=== PATIENT | male | born 1995 | race Caucasian/White ===

== ENCOUNTER → 2017-06-19 11:40 | Outpatient (CLI) | payer OTHER, SELFPAY ==
[2017-06-19 16:41] LABS: Cholesterol 125 mg/dL (200); Creatinine, Serum 0.84 mg/dL (0.70-1.30); EST Glomerular Filtration Rate 123 mL/min (>60); Est Glom Filt Rate - Afr Amer 149 mL/min (>60); High Density Lipoprotein 58 mg/dL
== END ==
PROVIDERS: Family Provider Family Medicine; PCP Family Medicine; Visit Provider Family Medicine
DX: M51.36 Other intervertebral disc degeneration, lumbar region (principal); Z82.49 Family history of ischemic heart disease and other diseases of the circulatory system
CPT/HCPCS: 36415; 82465; 82565; 83718

== ENCOUNTER → 2019-02-01 09:20 | Outpatient (CLI) | payer BC, SELFPAY ==
[2014-04-19 16:35] VITALS: BMI 20.9
--- NOTE | 2019-02-01 09:23 | RAD_ITS ---
STUDY: X-RAY - LUMBAR SPINE REASON FOR EXAM: Male, 24 years old. Lower back pain for 2 weeks. History of several transverse processes broken 2 1/2 years ago. TECHNIQUE: 5 view(s) of the lumbar spine were obtained. COMPARISON: None FINDINGS: Normal lumbar lordosis. There is no substantial scoliosis. There is a normal alignment of the vertebrae. Normal vertebral bodies and endplates. Normal disc space heights. There is no acute fracture, dislocation or destructive osseous pathology. Irregularities about the right second and third right transverse processes. 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 There is no demonstrated spondylolysis of the pars interarticulares. The soft tissue structures are unremarkable. RAD/L/S Spine Min 4 Views IMPRESSION: 1. No acute abnormality of the lumbar spine. 2. Remote right-sided transverse rods at fractures. There is questionable nonunion of the fourth transverse process. Electronically Signed: Kenneth Rhodes DO at 16:56 EDT Tel [phone], Service support ,
== END ==
PROVIDERS: Family Provider Family Medicine; PCP Family Medicine; Referring Provider Family Medicine; Visit Provider Family Medicine
DX: M54.9 Dorsalgia, unspecified (principal)
CPT/HCPCS: 72110

== ENCOUNTER → 2019-02-11 14:17 | Outpatient (CLI) | payer BC, SELFPAY ==
--- NOTE | 2019-02-11 14:22 | CT_ITS ---
STUDY: CT LUMBAR SPINE WITHOUT CONTRAST REASON FOR EXAM: Male, 24 years old. There is history of previous transverse process fractures RADIATION DOSAGE (If Supplied By Facility): CTDIvol = ( 13.82 ) mGy, DLP = ( 511.99 ) mGycm TECHNIQUE: The patient was scanned in a multi detector CT scanner. High resolution transaxial imaging was performed. Sagittal and coronal images were reconstructed. Individualized dose optimization techniques were used for this CT. COMPARISON: MRI 03/26/2017, radiographs 02/01/2019. FINDINGS: Normal lumbar lordosis. There is no substantial scoliosis. Normal alignment of the lumbar vertebral bodies. Deformities from old fractures are seen of the right transverse processes at L1, L2, L3 and L4. No acute fractures are seen. L1-2: Normal endplates. Normal disc height and morphology. Normal bilateral facet joints. Normal central canal and bilateral lateral recesses. Normal bilateral intervertebral neural foramina. L2-3: Normal endplates. Normal disc height and morphology. Normal bilateral facet joints. Normal central canal and bilateral lateral recesses. Normal bilateral intervertebral neural foramina. L3-4: Normal endplates. Normal disc height and morphology. Normal bilateral facet joints. Normal central canal and bilateral lateral recesses. Normal bilateral intervertebral neural foramina. L4-5: Normal disc height. Moderate left paramidline disc protrusion, best seen on axial image 83. Suggest repeat MRI. L5-S1: Normal endplates. Normal disc height and morphology. Normal bilateral facet joints. Normal central canal and bilateral lateral recesses. Normal bilateral intervertebral neural foramina. Normal visualized paraspinous soft tissue structures. CT/Spine Lumbar without Contrast IMPRESSION: No acute fractures. Deformities from old right multilevel transverse process fractures. Paramidline disc protrusion at L4-L5. Electronically Signed: Daniel Vides MD at 22:19 EDT , Service support ,
== END ==
PROVIDERS: Family Provider Family Medicine; PCP Family Medicine; Referring Provider Family Medicine; Visit Provider Family Medicine
DX: M54.9 Dorsalgia, unspecified (principal)
CPT/HCPCS: 72131

== ENCOUNTER → 2021-09-13 | Outpatient (CLI) | payer OTHER, SELFPAY | END | disposition home or self-care (01) | PROVIDERS: PCP Family Medicine; Visit Provider Registered Nurse | DX: R06.81 Apnea, not elsewhere classified (principal) | CPT/HCPCS: 95810 ==

== ENCOUNTER → 2021-11-12 | Outpatient (CLI) | payer OTHER, SELFPAY | END | disposition home or self-care (01) | LOC: SL 08:34 | PROVIDERS: PCP Family Medicine; Visit Provider Nurse Practitioner Acute Care | DX: Z46.89 Encounter for fitting and adjustment of other specified devices (principal) ==

== ENCOUNTER → 2021-12-21 | Outpatient (CLI) | payer OTHER, SELFPAY ==
--- NOTE | 2021-12-21 17:25 | STRESSREP ---
Stress Test Report Date: 12-21-2021 Procedure: Exercise tolerance test Indications: Chest pain; NUBIA Consent: Per the patient Procedure: The patient exercised on a Jordan protocol for 15 minutes completing Stage V achieving a peak heart rate of 150 bpm (76% predicted maximal heart rate) with a peak blood pressure 158/84 mmHg and a peak MET capacity of approximately 17 MET's. The baseline ECG demonstrated normal sinus rhythm. The peak exercise ECG demonstrated somatic/motion artifact with no obvious ECG changes at the heart rate achieved. There were no cardiac dysrhythmias pretest, during exercise, or recovery. The functional capacity was considered excellent. The patient had no complaint of chest discomfort during exercise or recovery. The examination was discontinued secondary to dyspnea. Impression: 1. Technically inadequate (percent predicted maximal heart rate less than 85%) exercise tolerance test 2. Peak exercise ECG with no obvious ECG changes at the heart rate achieved 3. There were no cardiac dysrhythmias during exercise or recovery Comment: Per the [facility] cardiovascular staff: The patient reported taking a medication/beta-jimi prior to his exercise tolerance test which could potentially impair his heart rate response. This note was generated with [employer] software. It may contain incorrect words, spelling, and punctuation that were not noted in checking the note before signing.
== END | disposition home or self-care (01) ==
LOC: CVS 09:53
PROVIDERS: PCP Family Medicine; Referring Provider Family Medicine; Visit Provider Family Medicine
DX: R07.9 Chest pain, unspecified (principal)
CPT/HCPCS: 93017

== ENCOUNTER → 2022-01-18 | Outpatient (CLI) | payer OTHER, SELFPAY ==
--- NOTE | 2022-01-18 10:30 | STE_ITS ---
Reason For Study: Chest Pain Stress Results Protocol: Jordan Protocol Maximum Predicted HR: 196 bpm Target HR: 167 bpm % Maximum Predicted HR: 85 % DurationHeart Rate Stage (mm:ss) (bpm) BP Comment Baseline 76 130/90No Chest Pain; Held Nebevilol X 2 Days Jordan Protocol Stage I 3:00 96 122/80No Chest Pain Jordan Protocol Stage II 3:00 99 140/78No Chest Pain Jordan Protocol Stage III 3:00 105 142/80No Chest Pain Jordan Protocol Stage IV 3:00 123 148/74No Chest Pain Jordan Protocol Stage V 3:00 166 160/72No Chest Pain Recovery 89 130/86No Chest Pain Stress Duration: 15:00 mm:ss Maximum Stress HR: 166 bpm METS: 17 Baseline Echocardiogram Findings Stress Echo Wall motion Data Resting WM Intermediate WM Stress WM Resting Wall Motion Wall Motion Stress All segments Normal. All segments Hyperkinetic. Ejection Fraction 60 %. Ejection Fraction 75 %. Stress Results Heart rate response: Technically adequate: Percent predicted maximal heart rate greater than 85% Blood pressure response: Resting hypertension-appropriate response Cardiac rhythm: No cardiac dysrhythmias Functional capacity: Good Stopped secondary to: Dyspnea. EKG Data Baseline ECG: Normal sinus rhythm. Peak exercise ECG: No obvious ECG changes. Symptoms with Stress No complaint of chest discomfort during exercise or recovery. ECHO/Stress Test Echo w/o Contrast Interpretation Summary Negative (adequate) stress echocardiogram Ordering Physician: Baljeet Christy Referring Physician: Baljeet Christy Performed By: Scarlett Conway, LYLE
== END | disposition home or self-care (01) ==
LOC: CVS 10:29
PROVIDERS: PCP Family Medicine; Referring Provider Internal Medicine Cardiovascular Disease; Visit Provider Internal Medicine Cardiovascular Disease
DX: R07.9 Chest pain, unspecified (principal); I10 Essential (primary) hypertension
CPT/HCPCS: 93017; 93350

== ENCOUNTER → 2022-02-20 | Outpatient (CLI) | payer OTHER, SELFPAY ==
--- NOTE | 2022-02-20 07:51 | RDU_ITS ---
Reason For Study: HTN Right Renal Artery Left Renal Artery Right renal artery ostium 69/28 Left renal artery ostium 131/27 RSV/EDV. PSV/EDV. Right renal artery proximal 80/35 Left renal artery proximal PSV/EDV PSV/EDV. 115/35 . Right renal artery mid 110/51 Left renal artery mid 94/35 PSV/EDV. PSV/EDV . Right renal artery distal 83/39 Left renal artery distal 99/33 PSV/EDV. PSV/EDV. Right Renal Parenchyma Left Renal Parenchyma Upper Pole Medula 26/12 PSV/EDV. Left upper pole medulla 35/17 Right upper pole medulla EDR 0.46 . PSV/EDV . Right upper pole medulla R.I. Left upper pole medulla EDR 0.49 . 0.56 . Left upper pole medulla R.I. 0.50 . Upper Leno Cortx 16/10 PSV/EDV. UP Cortex 32/17 PSV/EDV. Right upper pole cortex EDR 0.63 . Left upper pole cortex EDR 0.53 . Right upper pole cortex R.I. 0.37 . Left upper pole cortex R.I. 0.46 . Right lower Pole medulla 37/16 Left lower Pole medulla 33/15 PSV/EDV . PSV/EDV . Right lower pole medulla EDR 0.43 . Left lower pole medulla EDR 0.45 . Right lower pole medulla R.I. Left lower pole medulla R.I. 0.54 . 0.56 . Lower Pole Cortx 26/12 PSV/EDV. Lower Pole Cortex 17/7 PSV/EDV. Left lower pole cortex EDR 0.46 . Right lower pole cortex EDR 0.41 . Left lower pole cortex R.I. 0.53 . Right lower pole cortex R.I. 0.57 . Left Renal Hilar Right Renal Hilar LT Hilar avg 43/21 PSV/EDV . Right Hilar avg 78/36 PSV/EDV. Left hilar acceleration time 40 Right hilar acceleration time 40 m/sec. m/sec. Left Renal Dimensions Right Renal Dimensions Left kidney size 11.86 cm . Right kidney size 10.3 cm . Left cortical dimension 2.29 cm . Right cortical dimension 1.20 cm . Aorta Proximal abdominal aorta 1.50cm x 1.61 cm . Proximal abdominal aorta peak systolic velocity is 124 cm/sec . Distal abdominal aorta 1.57cm x 1.64 cm . Distal abdominal aorta peak systolic velocity is 128 cm/sec . VL/Renal Artery Duplex Ultrasound Interpretation Summary Bilateral renal artery <60% stenosis. Ordering Physician: Baljeet Christy Referring Physician: Puneet Pennington Performed By: Raven Baker, LYLE, RVT
== END | disposition home or self-care (01) ==
LOC: CVS 07:51
PROVIDERS: PCP Family Medicine; Referring Provider Internal Medicine Cardiovascular Disease; Visit Provider Internal Medicine Cardiovascular Disease
DX: I10 Essential (primary) hypertension (principal); R07.9 Chest pain, unspecified
CPT/HCPCS: 93975

== ENCOUNTER → 2022-04-25 | Outpatient (CLI) | payer OTHER, SELFPAY ==
[2022-04-25 09:23] LABS: Absolute Lymphocyte Count 1.55 X10^3/uL (0.83-4.51); Basophil# 0.05 X10^3/uL; Basophil% 0.9 % (0-1); Eosinophil# 0.23 X10^3/uL; Eosinophils% 4.3 % (0-5); Hematocrit 47.8 % (40-54); Hemoglobin 15.7 g/dL (13.0-16.5); Lymphocyte # 1.55 X10^3/ul (0.83-4.51); Lymphocyte % 29.1 % (19-41); Mean Corp Hgb Conc 32.8 g/dL (32-36); Mean Corpuscular Hgb 27.8 pg (27.0-32.0); Mean Corpuscular Volume 84.6 fL (80-94); Mean Platelet Vol. 9.4 fl (6.2-12.0); Monocyte# 0.51 X10^3/uL; Monocyte% 9.6 % (0-10); NRBC Flagged by Analyzer 0 % (0-5); Neutrophil # 2.96 X10^3/uL (2.7-7.7); Neutrophil % 55.5 % (47-70); Platelet Count 236 K/mm3 (150-450); RBC Distribution Width CV 11.9 % (11.6-14.6); RBC Distribution Width SD 35.9 fl (35.1-43.9); Red Blood Count 5.65 M/mm3 (4.6-6.2); White Blood Count 5.3 K/mm3 (4.4-11.0)
[2022-04-25 09:50] LABS: Vitamin D,25 Hydroxy 35.2 ng/mL
[2022-04-25 09:58] LABS: Anion Gap 1 (5-15); BUN 13 mg/dL (7-18); BUN/Creat Ratio 14.4 RATIO (10-20); Calcium,Total 9.1 mg/dL (8.5-10.1); Chloride 105 mmol/L (98-107); EST Glomerular Filtration Rate 109 mL/min (>60); Est Glom Filt Rate - Afr Amer 132 mL/min (>60); Glucose 105 mg/dL (74-106); Potassium 4.1 mmol/L (3.5-5.1); Sodium Level 138 mmol/L (136-145); Thyroid Stim Hormone (TSH) 1.09 uIU/mL (0.358-3.74)
== END | disposition home or self-care (01) ==
LOC: LAB 09:07
PROVIDERS: PCP Family Medicine; Visit Provider Nurse Practitioner Gerontology
DX: R53.83 Other fatigue (principal)
CPT/HCPCS: 36415; 80048; 82306; 84443; 85025

== ENCOUNTER → 2022-05-08 | Outpatient (CLI) | payer OTHER, SELFPAY ==
--- NOTE | 2022-05-08 13:58 | PFTCOMP_ITS ---
COMPLETE PULMONARY FUNCTION TEST INTERPRETATION Brief HPI: Patient is a 27-year-old male, currently under the care of Dr. Lundberg, who presents to [facility] for complete pulmonary function tests secondary to diagnosis of dyspnea. Respiratory therapist reports good effort and reproducible results. Interpretation: Forced expiration spirometry shows no large airways obstructive ventilatory defect with an FEV1 of 86% predicted. There is no significant bronchodilator response by strict ATS criteria. Spirograms are of good quality and plateau normally. The respiratory flow volume loop shows a normal pattern. Lung volumes by body plethysmography show a mildly decreased total lung capacity at 5.68 L, 74% predicted. All other lung volumes are reduced symmetrically. Diffusion capacity by carbon monoxide is normal at 94% predicted. The airway resistance is slightly elevated. No previous pulmonary function tests were available for review. Impression: Mild restrictive ventilatory defect with preserved diffusing capacity
== END | disposition home or self-care (01) ==
PROVIDERS: PCP Family Medicine; Referring Provider Internal Medicine Critical Care Medicine; Visit Provider Internal Medicine Critical Care Medicine
DX: R06.02 Shortness of breath (principal); R94.2 Abnormal results of pulmonary function studies
CPT/HCPCS: 94060; 94726; 94729

== ENCOUNTER → 2022-05-22 | Outpatient (CLI) | payer OTHER, SELFPAY ==
--- NOTE | 2022-05-22 08:35 | RAD_ITS ---
STUDY: X-RAY CHEST REASON FOR EXAM: Male, 27 years old. Restriction on PFT TECHNIQUE: PA and lateral views of the chest. COMPARISON: None. FINDINGS: The lungs are clear and expanded. There is no demonstrated pleural abnormality. Normal size heart. Normal mediastinum and guido. Normal visualized pulmonary arteries. Normal visualized aortic arch and descending thoracic aorta. Normal visualized thoracic spine. Normal visualized ribs, clavicles, and shoulders. There is no demonstrated abnormality of the visualized soft tissue structures of the upper abdomen. RAD/Chest PA and Lateral IMPRESSION: Normal x-ray examination of the chest. Electronically Signed: Agustin Carrillo MD at 15:44 EST ,
== END | disposition home or self-care (01) ==
LOC: RAD 08:30
PROVIDERS: PCP Family Medicine; Visit Provider Nurse Practitioner Acute Care
DX: R07.9 Chest pain, unspecified (principal)
CPT/HCPCS: 71046

== ENCOUNTER → 2022-05-31 | Outpatient (CLI) | payer OTHER, SELFPAY ==
--- NOTE | 2022-05-31 12:55 | ECHOD_ITS ---
Reason For Study: Chest Pain Procedure This was a 2D Doppler, Color Flow transthoracic echocardiogram. Exam performed in department. Left Ventricle Normal LV size. Left ventricular systolic function is normal. The estimated ejection fraction is 60 %. Normal diastology for age. No regional wall motion abnormalities noted. Right Ventricle Normal right ventricle. Normal systolic function. Atria Normal left atrium. Normal right atrium. Mitral Valve Normal mitral valve. Tricuspid Valve Normal tricuspid valve. Aortic Valve Normal aortic valve. Trisinus/trileaflet aortic valve. Pulmonic Valve Normal pulmonic valve. Great Vessels Normal aortic root. The pulmonary artery is normal size. Normal inferior vena cava. Pericardium/Pleural No pericardial effusion. MMode/2D Measurements & Calculations LVIDd: 4.5 cm IVSd: 0.98 cm Ao root diam: 3.0 cm LVIDs: 3.0 cm LVPWd: 0.82 cm LA dimension: 3.3 cm RVDd: 3.5 cm FS: 34.9 % LAV(MOD-bp): 29.6 ml LVAd ap4: 31.1 cm2 SV(MOD-sp4): 50.7 ml LAV(MOD-bp) Indexed: 14.2 ml/m2 LVLd ap4: 9.2 cm LAV(MOD-sp2): 30.5 ml EDV(MOD-sp4): 87.3 ml LAV(MOD-sp4): 25.1 ml EDV(sp4-el): 89.5 ml LVAs ap4: 18.2 cm2 LVLs ap4: 7.6 cm ESV(MOD-sp4): 36.7 ml ESV(sp4-el): 37.1 ml EF(MOD-sp4): 58.0 % EF(sp4-el): 58.6 % SV(sp4-el): 52.4 ml LA A4 area: 12.3 cm2 RA A4 area: 13.4 cm2 Time Measurements MV dec time: 0.18 sec Doppler Measurements & Calculations MV E max saurav: 82.4 cm/sec Lat Peak E' Saurav: 18.2 cm/sec Med Peak E' Saurav: 17.7 cm/sec MV A max saurav: 60.1 cm/sec E/E' lat: 4.5 E/E' med: 4.7 MV E/A: 1.4 MV V2 max: 96.9 cm/sec MV P1/2t max saurav: 95.9 cm/sec Ao V2 max: 117.3 cm/sec MV max P.8 mmHg MV P1/2t: 57.7 msec Ao max P.5 mmHg MV V2 mean: 52.6 cm/sec Ao V2 mean: 79.3 cm/sec MV mean P.3 mmHg MV dec slope: 487.1 cm/sec2 Ao mean P.9 mmHg MV V2 VTI: 23.1 cm MVA(P1/2t): 3.8 cm2 Ao V2 VTI: 19.5 cm AV (velocity ratio): 1.1 LV V1 max: 121.1 cm/sec PA V2 max: 118.5 cm/sec LV V1 max P.9 mmHg PA V2 mean: 83.8 cm/sec LV V1 mean P.9 mmHg LV V1 mean: 78.3 cm/sec LV V1 VTI: 21.0 cm ECHO/Echo Complete Interpretation Summary Normal LV size. Left ventricular systolic function is normal. The estimated ejection fraction is 60 %. Normal diastology for age. Structurally normal valves. Ordering Physician: Jing Alcocer Referring Physician: Puneet Pennington Performed By: Gurmeet Poe RCS
== END | disposition home or self-care (01) ==
PROVIDERS: PCP Family Medicine; Visit Provider Family Medicine
DX: R07.9 Chest pain, unspecified (principal)
CPT/HCPCS: 93306

== ENCOUNTER 2023-08-03 14:46 | Emergency (ER) | payer OTHER, SELFPAY ==
[2023-08-03 14:47] VITALS: BP 164/100; PULSE 87; RESP 18; TEMP 36.4; O2SAT 100; BMI 24.2
--- NOTE | 2023-08-03 15:35 | EKG12_ITS ---
Test Reason : CHEST PAIN Blood Pressure : / mmHG Vent. Rate : 101 BPM Atrial Rate : 101 BPM P-R Int : 160 ms QRS Dur : 102 ms QT Int : 348 ms P-R-T Axes : 057 047 067 degrees QTc Int : 451 ms Sinus tachycardia Otherwise normal ECG Confirmed by Felix Mejia ([id number]), assistant editor BITA BURCIAGA ([id number]) on 08/05/2023 10:16:57 AM Referred By: Confirmed By:Felix Mejia
--- NOTE | 2023-08-03 15:36 | ED.VIS.CHEST ---
HPI History of Present Illness Chief Complaint: Chest Pain Informant: patient Narrative Narrative: 28-year-old male presents after having sudden onset of racing pounding heartbeat that made him feel near syncopal, he had some left-sided chest heaviness that was nonpleuritic, felt dyspneic. He states he had 2 or 3 episodes of this in the past couple hours and is now feeling better. It was in between Easter meals in the middle of the afternoon. Denies any long travel recently, hospitalization, surgery, no leg pain or swelling. No recent injury. No illness. No history of DVT or PE. He has had symptoms like this before, he was seen at another hospital and told that he may have had an anxiety attack. He admits that the symptoms are making him feel anxious but he does not feel like it was necessarily a panic attack that started any of this. He is not on any mental health medications. He is concerned about the symptoms. He did follow-up with cardiology in the past because of stuff like this, ended up having a stress test that was negative and an echocardiogram that was fairly unremarkable. [facility] Medical History Allergic rhinosinusitis Conjunctivitis, both eyes Elevated blood pressure reading Essential hypertension H/O cardiovascular stress test Home Medications Oral appliance #1 ea 10/02/21 [Rx Last Taken Unknown] magnesium oxide 400 mg (241.3 mg magnesium) tablet 400 mg PO QHS 01/02/22 [History Last Taken Unknown] albuterol sulfate 90 mcg/actuation aerosol inhaler 2 puff inhalation Q4H PRN shortness of breath or wheezing #8.5 grams 04/09/22 [Rx Last Taken Unknown] Oral appliance #1 ea 10/30/22 [Rx Last Taken Unknown] omeprazole 40 mg capsule,delayed release 40 mg PO DAILY #30 caps 10/31/22 [Rx Last Taken Unknown] amlodipine 2.5 mg tablet 2.5 mg PO DAILY #90 tabs 04/21/23 [Rx Last Taken Unknown] Allergy/AdvReac Type Severity Reaction Status Date / Time No Known Allergies Allergy Verified 08/03/23 14:47 Family History Mother Hypertension Father Hypertension Grandfather CAD (coronary artery disease) Social History Smoking Status: Never smoker alcohol intake: current details: occasional substance use type: does not use caffeine: Yes Type: coffee Number of servings: 1 ROS ROS ED Constitutional Constitutional ED: Reports sweats; Denies chills or fever(s) Eyes Eyes: Denies change in vision or diplopia ENT ENT ED: Denies rhinorrhea or sore throat Cardiovascular Cardiovascular: Reports as per HPI, chest pain, lightheadedness and palpitations; Denies syncope Respiratory/Chest Respiratory/Chest: Reports dyspnea; Denies cough Gastrointestinal Gastrointestinal: Denies abdominal pain, diarrhea, nausea or vomiting Genitourinary Genitourinary ED: Denies dysuria or hematuria Musculoskeletal Musculoskeletal: Denies back pain or neck pain Integumentary Denies abscess or rash Neurologic Neurologic: Denies headache(s), paresthesias or weakness Psychiatric Psychiatric: Denies suicidal ideation or suicidal thoughts EXAM Physical Exam Const Vital Signs: 08/03/23 14:47 08/03/23 15:47 08/03/23 16:36 Temperature 97.6 F L Temperature Source Temporal Pulse Rate 87 92 82 Respiratory Rate 18 14 18 Blood Pressure 164/100 H 135/91 H 130/85 H Blood Pressure Mean 121 105 100 Pulse Ox 100 100 96 Oxygen Delivery Method Room Air Room Air Room Air 08/03/23 18:10 Temperature Temperature Source Pulse Rate 75 Respiratory Rate 18 Blood Pressure 131/92 H Blood Pressure Mean 105 Pulse Ox 98 Oxygen Delivery Method Room Air Positive well nourished and well developed Constitutional Narrative: Dry skin without diaphoresis General Appearance ED: well developed and NAD HEENT Reports moist mucous membranes normocephalic and atraumatic Eyes PERRL and EOMs intact bilaterally Neck full ROM and supple Resp normal respiratory effort and clear to auscultation bilaterally Cardio regular rate, regular rhythm and no murmurs Rate: other Other Details: mild resting tachycardia GI non-tender and non-distended Auscultation: normoactive bowel sounds Palpation: soft Back/Spine no CVA tenderness General Back: other FROM Extremity normal to inspection General Extremety ED: Negative for edema, pulses abnormal or tenderness General Extremity: Negative for edema or pulses abnormal Neuro oriented x3, CN's II-XII intact bilaterally and no sensory deficits noted Sensorium / Orientation: awake and alert Motor Exam: strength 5/5 throughout Skin no rashes or lesions noted and no wounds Heart Score History: Moderately Suspicious ECG: Normal Age: </= 45 years Risk Factors: 1 or 2 Risk Factors Troponin: </= Normal Limit Score: 2 MDM MDM MDM Narrative Medical decision making narrative: Patient was observed for 3-4 hours while we did a cardiac workup including a D-dimer which was normal, troponin that was normal, and a 2-hour delta which also was normal for a delta of 0. His EKG was normal, and he had no recurrent symptoms while being monitored in the ER. His labs did show hypokalemia, I replaced this with a dose of oral potassium chloride. Differential includes whole body hypokalemia in addition to transient acute respiratory alkalosis due to anxiety. I discussed with the patient I am not diagnosing him with anxiety/anxiety attack although that is in the differential that could cause the symptoms, dysrhythmia is also in the differential. Given his negative troponins, and his stable symptoms less likely to be a deadly/risky dysrhythmia such as ventricular tachycardia or ventricular fibrillation, and given his age and lack of risk factors, I am comfortable with him being discharged home. His heart score is low. Lab Data Attestation: I reviewed the patient's lab results. Labs: Laboratory Results - last 24 hr 08/03/23 08/03/23 15:00 17:20 WBC 6.1 RBC 5.54 Hgb 15.4 Hct 45.5 MCV 82.1 MCH 27.8 MCHC 33.8 RDW Std Deviation 35.6 RDW Coeff of Jc 11.9 Plt Count 258 MPV 9.4 Immature Gran % (Auto) 0.300 Neut % (Auto) 54.4 Lymph % (Auto) 34.0 [place] % (Auto) 8.0 Eos % (Auto) 2.6 Baso % (Auto) 0.7 Absolute Neuts (auto) 3.3 Absolute Lymphs (auto) 2.08 Nucleated RBC % 0 D-Dimer Quant (PE/DVT) < 0.27 L Sodium 138 Potassium 3.1 L Chloride 105 Carbon Dioxide 27.0 Anion Gap 6 BUN 13 Creatinine 1.06 Estim Creat Clear Calc 115.91 Est GFR (MDRD) Af Amer 108 Est GFR (MDRD) Non-Af 89 BUN/Creatinine Ratio 12.3 Glucose 97 Calcium 9.2 Troponin I High Sens 4 4 Radiography Diagnostic Testing: Clinical Impression(s) from Imaging Studies Chest X-Ray 08/03/23 15:44 IMPRESSION: No radiographic evidence of acute cardiopulmonary disease. Electronically Signed: Joshua Zheng MD at 16:19 EDT Reading Location ID and State: [facility] / [place] , Service support , Rhythm Strip Rhythm Strip: Sinus Tach Rate: 103 Ectopy: None EKG Initial EKG: Attestation: I personally reviewed and interpreted this EKG as follows: Interpretation: No Acute Injury Pattern and Sinus Tachycardia (101; nml EKG) Discharge Plan Triage Chief Complaint: Chest Pain ED Provider: Luis Bunch Dx/Rx/DC Orders Clinical Impression: Palpitations, Chest pain Instructions: ED Palpitations Prescriptions: No Action (DME) Oral appliance See Rx Instructions .ROUTE .MEDSUPPLY Qty: 1 0RF Rx Instructions: As directed albuterol sulfate 90 mcg/actuation HFA aerosol inhaler 2 puff inhalation Q4H PRN (Reason: shortness of breath or wheezing) Qty: 8.5 3RF Rx Instructions: administer with spacer (DME) Oral appliance See Rx Instructions .ROUTE .MEDSUPPLY Qty: 1 0RF Rx Instructions: As directed magnesium oxide 400 mg (241.3 mg magnesium) tablet 400 mg PO QHS omeprazole 40 mg capsule,delayed release(DR/EC) 40 mg PO DAILY Qty: 30 0RF amlodipine 2.5 mg tablet 2.5 mg PO DAILY Qty: 90 3RF Primary Care Provider: Puneet Pennington Referrals: Puneet Pennington MD [Primary Care Provider] - Maia Arreola HYPO DIPPER, HYPO DIPPER-C [Non-Staff -Ordering Privileges] - (call for follow up) Disposition Disposition: Home, Self Care
--- NOTE | 2023-08-03 15:44 | RAD_ITS ---
EXAM: XR CHEST, 1 VIEW CLINICAL INDICATION: chest pain TECHNIQUE: Frontal view of the chest. COMPARISON: 05.22.22 FINDINGS: LUNGS AND PLEURAL SPACES: Unremarkable. No consolidation or edema. No pneumothorax. No effusion. HEART: Unremarkable. Cardiac silhouette not enlarged. MEDIASTINUM: Central airways and mediastinal contour are unremarkable. BONES/JOINTS: Unremarkable. No acute fracture. SOFT TISSUES: Unremarkable. RAD/Chest 1 View (Portable) IMPRESSION: No radiographic evidence of acute cardiopulmonary disease. Electronically Signed: Joshua Zheng MD at 16:19 EDT ,
[2023-08-03 15:47] VITALS: BP 135/91; PULSE 92; RESP 14; O2SAT 100
[2023-08-03 16:05] LABS: Absolute Lymphocyte Count 2.08 X10^3/uL (0.83-4.51); Absolute Neutrophil Count 3.3 X10^3/uL (2.0-7.7); Basophil# 0.04 X10^3/uL; Basophil% 0.7 % (0-1); Eosinophil# 0.16 X10^3/uL; Eosinophils% 2.6 % (0-5); Hematocrit 45.5 % (40-54); Hemoglobin 15.4 g/dL (13.0-16.5); Lymphocyte # 2.08 X10^3/ul (0.83-4.51); Mean Corp Hgb Conc 33.8 g/dL (32-36); Mean Corpuscular Hgb 27.8 pg (27.0-32.0); Mean Corpuscular Volume 82.1 fL (80-94); Mean Platelet Vol. 9.4 fl (6.2-12.0); Monocyte# 0.49 X10^3/uL; NRBC Flagged by Analyzer 0 % (0-5); Neutrophil # 3.32 X10^3/uL (2.7-7.7); Neutrophil % 54.4 % (47-70); Platelet Count 258 K/mm3 (150-450); RBC Distribution Width CV 11.9 % (11.6-14.6); RBC Distribution Width SD 35.6 fl (35.1-43.9); Red Blood Count 5.54 M/mm3 (4.6-6.2); White Blood Count 6.1 K/mm3 (4.4-11.0)
[2023-08-03 16:12] LABS: Anion Gap 6 (5-15); BUN 13 mg/dL (7-18); BUN/Creat Ratio 12.3 RATIO (10-20); Calcium,Total 9.2 mg/dL (8.5-10.1); Chloride 105 mmol/L (98-107); Creatinine, Serum 1.06 mg/dL (0.70-1.30); EST Glomerular Filtration Rate 89 mL/min (>60); Est Glom Filt Rate - Afr Amer 108 mL/min (>60); Estimated Creatinine Clearance 115.91 ml/min; Glucose 97 mg/dL (74-106); Potassium 3.1 mmol/L (3.5-5.1); Sodium Level 138 mmol/L (136-145); Troponin-I HS (w/2H Reflex) 4 pg/mL (3.0-78.0)
[2023-08-03 16:13] LABS: D-Dimer Quantitative (DVT/PE) < 0.27 FEU/ug/m (0.27-0.49)
[2023-08-03 16:36] VITALS: BP 130/85; PULSE 82; RESP 18; O2SAT 96
[2023-08-03 16:59] LABS: Reflex Troponin-HS? (from REC) Y
[2023-08-03] MEDS: Potassium Chloride Oral Tablet 20 MEQ 40 MEQ PO (17:11)
[2023-08-03 17:42] LABS: Troponin-I HS 4 pg/mL (3.0-78.0)
[2023-08-03 18:10] VITALS: BP 131/92; PULSE 75; RESP 18; O2SAT 98
[2023-08-03 18:54] VITALS: BP 123/86; PULSE 82; RESP 22; TEMP 37.1; O2SAT 98
== END 2023-08-03 18:55 | disposition home or self-care (01) ==
PROVIDERS: Emergency Provider Emergency Medicine; PCP Family Medicine; Visit Provider Emergency Medicine
DX: R07.9 Chest pain, unspecified (principal); E87.6 Hypokalemia; R00.2 Palpitations; I10 Essential (primary) hypertension; Z79.899 Other long term (current) drug therapy
CPT/HCPCS: 71045; 80048; 84484; 85025; 85379; 93005; 99284

== ENCOUNTER → 2023-08-19 | Outpatient (CLI) | payer OTHER, SELFPAY ==
[2023-08-19 10:53] LABS: Anion Gap 2 (5-15); BUN 10 mg/dL (7-18); BUN/Creat Ratio 11.3 RATIO (10-20); Calcium,Total 9.2 mg/dL (8.5-10.1); Chloride 108 mmol/L (98-107); Creatinine, Serum 0.88 mg/dL (0.70-1.30); EST Glomerular Filtration Rate 111 mL/min (>60); Est Glom Filt Rate - Afr Amer 134 mL/min (>60); Glucose 102 mg/dL (74-106); Potassium 4.2 mmol/L (3.5-5.1); Sodium Level 141 mmol/L (136-145)
== END | disposition home or self-care (01) ==
LOC: LAB 10:07
PROVIDERS: PCP Family Medicine; Referring Provider Physician Assistant Medical; Visit Provider Physician Assistant Medical
DX: R07.9 Chest pain, unspecified (principal)
CPT/HCPCS: 36415; 80048; 83735